=== PATIENT | female | born 1935 | race Caucasian/White ===

== ENCOUNTER 2023-11-30 22:24 | Inpatient (IN) | payer BC ==
[~2023-11-30] VITALS: Ht 165.1 cm; Wt 64.8 kg
[~2023-11-30 22:24] MED LIST: ALBUAER3 IN; AMLO1TAB22 PO; LEVE500T3 PO; LOSA-533 PO; POTATAB17 PO; UMEC1AER IN
[2023-11-30 22:30] VITALS: PULSE 81; RESP 20; O2SAT 96
[2023-11-30 23:20] LABS: Urine Amorphous Crystal FEW /hpf (None Seen); Urine Bacteria FEW /hpf (None Seen); Urine Blood 1+ /uL (Negative); Urine Clarity Turbid (Clear); Urine Color Colorless (Yellow); Urine Protein, UAD TRACE (Negative); Urine Specific Gravity 1.012 (1.001-1.035); Urine Urobilinogen Normal (Negative); Urine WBC 105 /hpf (0 - 5); Urine pH 5.5 (5.0-9.0)
[2023-11-30 23:20] LABS: Basophils # (auto) 0 10 ^3/uL (0-0.2); Basophils % (auto) 0.4 % (0.0-2.0); Eosinophils # (auto) 0 10 ^3/uL (0-0.8); Eosinophils % (auto) 0.2 % (0.0-7.0); Hematocrit 33.9 % (36.0-46.0); Hemoglobin 11.6 g/dL (12.2-16.2); Lymphocytes # (auto) 1.6 10 ^3/uL (0.4-5.4); Lymphocytes % (auto) 17.6 % (10.0-50.0); Mean Corpuscular Hemoglobin 31.8 pg (28.0-32.0); Mean Corpuscular Hgb Conc. 34.2 g/dL (32.0-36.0); Monocytes # (auto) 0.5 10 ^3/uL (0-1.3); Monocytes % (auto) 4.9 % (0.0-12.0); Neutrophils # (auto) 7.1 10 ^3/uL (1.6-8.6); Neutrophils % (auto) 76.9 % (37.0-80.0); Platelet Count (auto) 189 10^3/uL (140-450); Red Blood Cells 3.64 10^6/uL (4.0-5.20); Red Cell Distribution Width 15.6 % (11.8-14.3); White Blood Cell 9.3 10^3/uL (4.4-10.8)
[2023-11-30 23:25] LABS: Chloride 100 mmol/L (98-107); Potassium 4.8 mmol/L (3.5-5.1); Sodium 133 mmol/L (136-145)
[2023-11-30 23:26] LABS: Anion Gap 5 (5-15); Calcium 9.7 mg/dL (8.7-10.4); Carbon Dioxide 28 mmol/L (20-31)
[2023-11-30 23:31] LABS: BUN/Creatinine Ratio 23.2 (10.0-20.0); Blood Urea Nitrogen 16 mg/dL (9-23); Glucose 136 mg/dL (74-106)
[2023-11-30 23:57] LABS: Blood Alcohol < 3.0 mg/dL (<10)
[2023-12-01] VITALS (8 sets, daily range): BP systolic 163–169; BP diastolic 52–66; PULSE 44–61; RESP 16–22; TEMP 97.6–98.7; O2SAT 93–100
[2023-12-01] MEDS: cefTRIAXone 1GM/50ML D5W 50 ML IV ONE (05:43)
[2023-12-01] MEDS ORDERED: NITROGLYCERIN 0.4 MG SL TAB SL PRN (07:00)
[2023-12-01] MEDS ORDERED: MORPHINE SULFATE INJ 2 MG/ml SYRG IV PRN (07:00)
[2023-12-01] MEDS ORDERED: ONDANSETRON HCL 4 MG/2 ML VIAL IV PRN (07:00)
[2023-12-01] MEDS ORDERED: ACETAMINOPHEN 325 MG TAB PO PRN (07:00)
[2023-12-01] MEDS ORDERED: DOCUSATE SOD 100 MG CAP PO PRN (07:00)
[2023-12-01 07:20] LABS: Basophils # (auto) 0 10 ^3/uL (0-0.2); Basophils % (auto) 0.6 % (0.0-2.0); Eosinophils # (auto) 0 10 ^3/uL (0-0.8); Eosinophils % (auto) 0.2 % (0.0-7.0); Hematocrit 30.7 % (36.0-46.0); Hemoglobin 10.5 g/dL (12.2-16.2); Lymphocytes # (auto) 1.1 10 ^3/uL (0.4-5.4); Lymphocytes % (auto) 18.3 % (10.0-50.0); Mean Corpuscular Hemoglobin 31.4 pg (28.0-32.0); Mean Corpuscular Hgb Conc. 34.1 g/dL (32.0-36.0); Mean Corpuscular Volume 92.1 fL (80.0-100.0); Monocytes # (auto) 0.4 10 ^3/uL (0-1.3); Monocytes % (auto) 7.3 % (0.0-12.0); Neutrophils # (auto) 4.2 10 ^3/uL (1.6-8.6); Neutrophils % (auto) 73.6 % (37.0-80.0); Nucleated Red Blood Cells % 0.1 %; Platelet Count (auto) 173 10^3/uL (140-450); Red Blood Cells 3.34 10^6/uL (4.0-5.20); Red Cell Distribution Width 15.9 % (11.8-14.3); White Blood Cell 5.8 10^3/uL (4.4-10.8)
[2023-12-01 07:36] LABS: Alanine Aminotransferase 34 U/L (7-40); Albumin 3.4 g/dL (3.2-4.8); Alkaline Phosphatase 64 U/L (46-116); Anion Gap 3 (5-15); Aspartate Aminotransferase 33 U/L (13-40); BUN/Creatinine Ratio 20.3 (10.0-20.0); Bilirubin, Total 0.5 mg/dL (0.2-1.0); Blood Urea Nitrogen 12 mg/dL (9-23); Calcium 9.3 mg/dL (8.7-10.4); Carbon Dioxide 29 mmol/L (20-31); Chloride 102 mmol/L (98-107); Glucose 92 mg/dL (74-106); Potassium 4.2 mmol/L (3.5-5.1); Sodium 134 mmol/L (136-145); Total Protein 5.9 g/dL (5.7-8.2)
[2023-12-01] MEDS: cefTRIAXone 1GM/50ML D5W 50 ML IV SCH (09:00)
[2023-12-01] MEDS: SODIUM CHLORIDE 0.9% 1,000 ML IV SCH (09:13)
[2023-12-01] MEDS: FAMOTIDINE (10MG/ML) 2ML VL IV SCH (10:18)
[2023-12-01] MEDS: ASPirin 81 mg TAB PO SCH (10:18)
[2023-12-01] MEDS: levETIRAcetam 500 mg/100ml 100 ML IV SCH (10:18)
[2023-12-01] MEDS: hydrALAZINE HCL 20 MG/ML VL IV PRN (15:37)
[2023-12-02] VITALS (12 sets, daily range): BP systolic 102–154; BP diastolic 46–76; PULSE 47–76; RESP 16–18; TEMP 97.5–98.4; O2SAT 98–100
[2023-12-02] MEDS: ALBUTEROL SULF 2.5 MG/0.5ML(0.5%) NEB SOLN NEB PRN (09:38)
[2023-12-02 13:05] LABS: Basophils # (auto) 0 10 ^3/uL (0-0.2); Basophils % (auto) 0.5 % (0.0-2.0); Eosinophils # (auto) 0 10 ^3/uL (0-0.8); Eosinophils % (auto) 0.3 % (0.0-7.0); Hematocrit 33.5 % (36.0-46.0); Hemoglobin 11.3 g/dL (12.2-16.2); Lymphocytes # (auto) 0.7 10 ^3/uL (0.4-5.4); Lymphocytes % (auto) 15.1 % (10.0-50.0); Mean Corpuscular Hemoglobin 31.6 pg (28.0-32.0); Mean Corpuscular Hgb Conc. 33.7 g/dL (32.0-36.0); Mean Corpuscular Volume 93.7 fL (80.0-100.0); Monocytes # (auto) 0.4 10 ^3/uL (0-1.3); Monocytes % (auto) 9.2 % (0.0-12.0); Neutrophils # (auto) 3.6 10 ^3/uL (1.6-8.6); Neutrophils % (auto) 74.9 % (37.0-80.0); Nucleated Red Blood Cells % 0.1 %; Platelet Count (auto) 179 10^3/uL (140-450); Red Blood Cells 3.57 10^6/uL (4.0-5.20); Red Cell Distribution Width 15.8 % (11.8-14.3); White Blood Cell 4.9 10^3/uL (4.4-10.8)
[2023-12-02 13:13] LABS: Alanine Aminotransferase 30 U/L (7-40); Albumin 3.6 g/dL (3.2-4.8); Alkaline Phosphatase 69 U/L (46-116); Anion Gap 5 (5-15); Aspartate Aminotransferase 28 U/L (13-40); BUN/Creatinine Ratio 27.1 (10.0-20.0); Blood Urea Nitrogen 16 mg/dL (9-23); Calcium 9.6 mg/dL (8.7-10.4); Carbon Dioxide 30 mmol/L (20-31); Chloride 102 mmol/L (98-107); Glucose 114 mg/dL (74-106); Potassium 3.9 mmol/L (3.5-5.1); Sodium 137 mmol/L (136-145)
[2023-12-02 13:14] LABS: Bilirubin, Total 0.6 mg/dL (0.2-1.0)
[2023-12-02] MEDS: METOPROLOL TARTRATE 25 MG TAB PO SCH (21:53)
[2023-12-03] VITALS (13 sets, daily range): BP systolic 118–178; BP diastolic 45–86; PULSE 48–74; RESP 17–23; TEMP 97.4–98.3; O2SAT 92–100
[2023-12-03 06:22] LABS: Basophils # (auto) 0 10 ^3/uL (0-0.2); Basophils % (auto) 0.8 % (0.0-2.0); Eosinophils # (auto) 0.1 10 ^3/uL (0-0.8); Eosinophils % (auto) 3.2 % (0.0-7.0); Hemoglobin 9.8 g/dL (12.2-16.2); Lymphocytes # (auto) 0.9 10 ^3/uL (0.4-5.4); Mean Corpuscular Hemoglobin 31.4 pg (28.0-32.0); Mean Corpuscular Hgb Conc. 33.8 g/dL (32.0-36.0); Monocytes # (auto) 0.4 10 ^3/uL (0-1.3); Monocytes % (auto) 11.6 % (0.0-12.0); Neutrophils # (auto) 2.1 10 ^3/uL (1.6-8.6); Neutrophils % (auto) 59.4 % (37.0-80.0); Nucleated Red Blood Cells % 0.1 %; Platelet Count (auto) 162 10^3/uL (140-450); Red Blood Cells 3.12 10^6/uL (4.0-5.20); White Blood Cell 3.6 10^3/uL (4.4-10.8)
[2023-12-03 06:25] LABS: Anion Gap 4 (5-15); Carbon Dioxide 28 mmol/L (20-31); Chloride 107 mmol/L (98-107); Potassium 4.3 mmol/L (3.5-5.1); Sodium 139 mmol/L (136-145)
[2023-12-03 06:26] LABS: Calcium 9.2 mg/dL (8.7-10.4)
[2023-12-03 06:31] LABS: Glucose 88 mg/dL (74-106); LDL Cholesterol 83 mg/dL (< 100); Magnesium 1.9 mg/dL (1.6-2.6); Triglycerides 55 mg/dL (< 150)
[2023-12-03 06:33] LABS: Cholesterol 140 mg/dL (< 200); HDL Cholesterol 45 mg/dL (40-59)
[2023-12-03 08:16] LABS: BUN/Creatinine Ratio 23.5 (10.0-20.0); Blood Urea Nitrogen 12 mg/dL (9-23)
[2023-12-03] MEDS ORDERED: FLUT1AER3 IN (15:06)
[2023-12-03] MEDS: IPRATROPIUM BROM 0.5 MG/2.5ML INH SOL NEB SCH (18:54)
[2023-12-03] MEDS: ALBUTEROL SULF 2.5 MG/0.5ML(0.5%) NEB SOLN NEB SCH (18:54)
[2023-12-03] MEDS: AMIODARONE HCL 200 MG TAB PO SCH (21:31)
[2023-12-03] MEDS: BUDESONIDE (INHALATION) 0.5 MG/2 ML NEB NEB SCH (21:46)
[2023-12-04] VITALS (19 sets, daily range): BP systolic 56–199; BP diastolic 20–87; PULSE 54–72; RESP 12–19; TEMP 98–98.7; O2SAT 90–99
[2023-12-04] MEDS: MAGNESIUM OXIDE 400 MG TAB PO ONE (15:26)
[2023-12-04] MEDS: SODIUM CHLORIDE 0.9% 500 ML IV ONE (15:28)
[2023-12-04 17:12] LABS: INR 1.03 (0.9-1.15); Partial Thromboplastin Time 24.9 SEC (24.5-34.5); Prothrombin Time 10.9 sec (9.3-11.8)
[2023-12-05] VITALS (19 sets, daily range): BP systolic 6–194; BP diastolic 61–93; PULSE 51–70; RESP 12–20; TEMP 98–98.4; O2SAT 90–99
[2023-12-05] MEDS: MAGNESIUM OXIDE 400 MG TAB PO SCH (09:30)
[2023-12-05] MEDS ORDERED: ALBUTEROL SULF 2.5 MG/0.5ML(0.5%) NEB SOLN NEB PRN (13:45)
[2023-12-05] MEDS: VANCOMYCIN 1GM/200ML PREMIX 200 ML IV ONE (15:39)
[2023-12-05] MEDS: LIDOCAINE 2%HCL (LOCAL ANESTH.) INJ 20ML MDV ONE (15:39)
[2023-12-05] MEDS: VANCOMYCIN HCL 1000 MG VL ONE (15:39)
[2023-12-05] MEDS: MIDAZOLAM HCL 2MG/2ML 2ml VIAL (1mg/ml) ONE (15:40)
[2023-12-05] MEDS: fentaNYL CITRATE 100 MCG/2 ML VL ONE (15:40)
[2023-12-05] MEDS: HYDROcodone-ACET 5/325MG TAB PO PRN (20:30)
[2023-12-05] MEDS: levETIRAcetam 500 MG TAB PO SCH (21:56)
[2023-12-06] VITALS (8 sets, daily range): BP systolic 139–154; BP diastolic 57–72; PULSE 61–74; RESP 17–21; TEMP 97.5–98; O2SAT 90–98
[2023-12-06 07:35] LABS: Basophils # (auto) 0 10 ^3/uL (0-0.2); Basophils % (auto) 0.6 % (0.0-2.0); Eosinophils # (auto) 0 10 ^3/uL (0-0.8); Eosinophils % (auto) 0.6 % (0.0-7.0); Hemoglobin 9.3 g/dL (12.2-16.2); Lymphocytes # (auto) 0.9 10 ^3/uL (0.4-5.4); Lymphocytes % (auto) 20.7 % (10.0-50.0); Mean Corpuscular Hemoglobin 32.4 pg (28.0-32.0); Mean Corpuscular Hgb Conc. 34.4 g/dL (32.0-36.0); Mean Corpuscular Volume 94.3 fL (80.0-100.0); Monocytes # (auto) 0.5 10 ^3/uL (0-1.3); Monocytes % (auto) 10.5 % (0.0-12.0); Neutrophils % (auto) 67.6 % (37.0-80.0); Nucleated Red Blood Cells % 0.1 %; Platelet Count (auto) 167 10^3/uL (140-450); Red Blood Cells 2.86 10^6/uL (4.0-5.20); Red Cell Distribution Width 16.3 % (11.8-14.3); White Blood Cell 4.4 10^3/uL (4.4-10.8)
[2023-12-06 07:41] LABS: Anion Gap 4 (5-15); Carbon Dioxide 27 mmol/L (20-31); Chloride 105 mmol/L (98-107); Potassium 4.2 mmol/L (3.5-5.1); Sodium 136 mmol/L (136-145)
[2023-12-06 07:42] LABS: Calcium 9.2 mg/dL (8.7-10.4)
[2023-12-06 07:47] LABS: BUN/Creatinine Ratio 16.7 (10.0-20.0); Blood Urea Nitrogen 8 mg/dL (9-23); Glucose 93 mg/dL (74-106)
[2023-12-06] MEDS ORDERED: DOXY-286 PO (09:57)
[2023-12-06] MEDS ORDERED: DILT60CA PO (09:57)
[2023-12-06] MEDS: dilTIAZem 120MG ER CAP PO ONE (11:27)
== END 2023-12-06 15:25 | disposition home or self-care (01) | DRG 242 ==
LOC: ER 22:24 → EDBD 22:24 → ER 12-01 07:05 → TELE 12-01 07:05 → TELE-WESTW 12-01 17:49
PROVIDERS: ADMIT Nurse Practitioner Family; ATTEND Nurse Practitioner Acute Care
PROC: 0JH606Z Insertion of Pacemaker, Dual Chamber into Chest Subcutaneous Tissue and Fascia, Open Approach (ICD-10-PCS; principal; 2023-12-05)
PROC: 02H63JZ Insertion of Pacemaker Lead into Right Atrium, Percutaneous Approach (ICD-10-PCS; 2023-12-05)
PROC: 02HK3JZ Insertion of Pacemaker Lead into Right Ventricle, Percutaneous Approach (ICD-10-PCS; 2023-12-05)
PROC: B5171ZZ Fluoroscopy of Left Subclavian Vein using Low Osmolar Contrast (ICD-10-PCS; 2023-12-05)
DX: I49.5 Sick sinus syndrome (principal); G93.41 Metabolic encephalopathy; N39.0 Urinary tract infection, site not specified; E87.1 Hypo-osmolality and hyponatremia; I47.20 Ventricular tachycardia, unspecified; J44.9 Chronic obstructive pulmonary disease, unspecified; I16.0 Hypertensive urgency; I48.0 Paroxysmal atrial fibrillation; I95.1 Orthostatic hypotension; G40.909 Epilepsy, unspecified, not intractable, without status epilepticus; Z85.3 Personal history of malignant neoplasm of breast; Z90.11 Acquired absence of right breast and nipple; Z90.710 Acquired absence of both cervix and uterus
CPT/HCPCS: 31500; 33208; 36415; 70450; 71045; 80048; 80053; 80061; 80320; 81001; 83036; 83735; 84443; 84484; 85025; 85610; 85730; 86850; 86900; 86901; 87086; 87088; 87186; 93005; 93306; 93886; 94640; 96365; 97110; 97116; 97530; 99152; 99291; G0378; J2250; J3490